=== PATIENT | female | born 1990 | race Caucasian/White ===

== ENCOUNTER 2017-04-25 04:38 | Emergency (ER) | payer OTHER ==
[~2017-04-25] VITALS: Ht 160 cm; Wt 104.3 kg
[2017-04-25] MEDS ORDERED: CYMBALTA30 MG PO (04:50)
[2017-04-25] MEDS ORDERED: SEROQUEL50 MG PO (04:50)
[2017-04-25] MEDS ORDERED: CHLORPROMAZINE10 MG PO (04:51)
[2017-04-25] MEDS ORDERED: HYDROXYZINE HCL25 MG PO (04:52)
[2017-04-25] MEDS ORDERED: OMEPRAZOLE40 MG PO (04:53)
[2017-04-25] MEDS ORDERED: ZOFRAN ODT4 MG PO (04:54)
[2017-04-25] MEDS ORDERED: EYE DROPS15 ML OPTH (04:56)
[2017-04-25] MEDS ORDERED: TYLENOL EXTRA500 MG PO (04:57)
== END 2017-04-25 06:54 | disposition home or self-care (01) ==
LOC: ED 04:38
DX: F44.5 Conversion disorder with seizures or convulsions (principal); F32.9 Major depressive disorder, single episode, unspecified; Z88.8 Allergy status to other drugs, medicaments and biological substances; Z79.899 Other long term (current) drug therapy
CPT/HCPCS: 80053; 81001; 85025; 99283